=== PATIENT | female | born 1985 | race Caucasian/White ===

== ENCOUNTER 2018-02-17 16:55 | Observation (INO) | payer OTHER ==
--- NOTE | 2018-02-17 17:33 | ER Document Report ---
ED Medical Screen (RME) - General Chief Complaint: Abdominal Pain Stated Complaint: ABDOMINAL PAIN Time Seen by Provider: 02/17/18 17:25 Notes: 32-year-old female who is a a 4, she has had 3 miscarriages and one interstitial ectopic presents emergency department stating that she is 6 weeks , has been having severe lower abdominal cramping pain that is slightly off to the left of midline since this morning and has since developed a small amount of vaginal bleeding while waiting in the emergency department. TRAVEL OUTSIDE OF THE [place] IN LAST 30 DAYS: No - Related Data Allergies/Adverse Reactions: No Known Allergies Allergy (Verified 02/17/18 16:55) Past Medical History - General Information source: Patient - Social History Chew tobacco use (# tins/day): No Frequency of alcohol use: None Drug Abuse: None Renal/ Medical History: Denies: Hx Peritoneal Dialysis Review of Systems - Review of Systems Constitutional: No symptoms reported Genitourinary: See HPI Female Genitourinary: See HPI Physical Exam - Vital signs Vitals: Temp Pulse Resp BP Pulse Ox 97.9 F 83 18 114/73 100 02/17/18 17:03 02/17/18 17:03 02/17/18 17:03 02/17/18 17:03 02/17/18 17:03 Interpretation: Normal - General General appearance: Anxious - Tearful - HEENT Head: Normocephalic, Atraumatic - Respiratory Respiratory status: No respiratory distress - Skin Skin Color: Normal Course - Vital Signs Vital signs: Temp Pulse Resp BP Pulse Ox 97.9 F 83 18 114/73 100 02/17/18 17:03 02/17/18 17:03 02/17/18 17:03 02/17/18 17:03 02/17/18 17:03
--- NOTE | 2018-02-17 17:54 | ER Document Report ---
ED GI/ - General Chief Complaint: Abdominal Pain Stated Complaint: ABDOMINAL PAIN Time Seen by Provider: 02/17/18 17:25 Mode of Arrival: Wheelchair Information source: Patient Notes: 32-year-old female presents to ED for complaint of pelvic pain and vaginal spotting. She states she is 6 weeks and has been being monitored by her [facility] [facility] [facility] in [place]. She is here on vacation. She states on February 06 her hCG was 600 and on February 08 it was 1500. She states she has a severe pain on the left pelvic area and she developed spotting while in the emergency room. She states as a young adult she had cervical dysplasia and multiple leeps. TRAVEL OUTSIDE OF THE [place] IN LAST 30 DAYS: No - HPI Patient complains to provider of: Pelvic pain, , Vaginal bleeding Onset: This morning Timing/Duration: Gradual Quality of pain: Cramping Severity at maximum: Severe Severity in ED: Severe Pain Level: 5 Vaginal bleeding (Compared to normal period): Spotting Menstrual period history: Associated symptoms: Other - Left pelvic pain Exacerbated by: Movement Relieved by: Denies Similar symptoms previously: Yes Recently seen / treated by doctor: Yes - Related Data Allergies/Adverse Reactions: No Known Allergies Allergy (Verified 02/17/18 16:55) Past Medical History - General Information source: Patient - Social History Smoking Status: Never Smoker Cigarette use (# per day): No Chew tobacco use (# tins/day): No Smoking Education Provided: No Frequency of alcohol use: None Drug Abuse: None 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 denies: Arthritis, CAD, COPD, CVA , Hyperlipidemia, Thyroid Disfunction Patient has suicidal ideation: No Patient has homicidal ideation: No Pulmonary Medical History: Reports: None EENT Medical History: Reports: None Neurological Medical History: Reports: None Endocrine Medical History: Reports: None Renal/ Medical History: Reports: Hx Ectopic , Other - Cervical dysplasia Malignancy Medical History: Reports: None GI Medical History: Reports: None Musculoskeltal Medical History: Reports None Skin Medical History: Reports None Psychiatric Medical History: Reports: None Traumatic Medical History: Reports: None Infectious Medical History: Reports: None Past Surgical History: Reports: Hx Genitourinary Surgery - Multiple leeps, Hx Myringotomy - Immunizations Immunizations up to date: Yes Review of Systems - Review of Systems Constitutional: No symptoms reported EENT: No symptoms reported Cardiovascular: No symptoms reported Respiratory: No symptoms reported Gastrointestinal: No symptoms reported Genitourinary: No symptoms reported Female Genitourinary: , Vaginal bleeding, Other - Left pelvic pain Musculoskeletal: No symptoms reported Skin: No symptoms reported Hematologic/Lymphatic: No symptoms reported Neurological/Psychological: No symptoms reported -: Yes All other systems reviewed and negative Physical Exam - Vital signs Vitals: Temp Pulse Resp BP Pulse Ox 97.9 F 83 18 114/73 100 02/17/18 17:03 02/17/18 17:03 02/17/18 17:03 02/17/18 17:03 02/17/18 17:03 Interpretation: Normal - General General appearance: Appears well, Alert - HEENT Head: Normocephalic, Atraumatic Eyes: Normal Pupils: PERRL - Respiratory Respiratory status: No respiratory distress Chest status: Nontender Breath sounds: Normal Chest palpation: Normal - Cardiovascular Rhythm: Regular Heart sounds: Normal auscultation Murmur: No - Abdominal Inspection: Normal Distension: No distension Bowel sounds: Normal Tenderness: Tender - Left pelvic area Organomegaly: No organomegaly - Back Back: Normal, Nontender - Extremities General upper extremity: Normal inspection, Nontender, Normal color, Normal ROM , Normal temperature General lower extremity: Normal inspection, Nontender, Normal color, Normal ROM , Normal temperature, Normal weight bearing. No: Deb's sign - Neurological Neuro grossly intact: Yes Cognition: Normal Orientation: AAOx4 [place] Coma Scale Eye Opening: Spontaneous [place] Coma Scale Verbal: Oriented [place] Coma Scale Motor: Obeys Commands [place] Coma Scale Total: 15 Speech: Normal Motor strength normal: LUE, RUE, LLE, RLE Sensory: Normal - Psychological Associated symptoms: Normal affect, Normal mood - Skin Skin Temperature: Warm Skin Moisture: Dry Skin Color: Normal Course - Re-evaluation Re-evalutation: 02/17/18 20:[address]. Booker came and examined the patient. All labs and ultrasound were discussed with Dr. Booker. A copy of the results given to Dr. Walton as well as she visualized the images. She went in and examined the patient as well as a pelvic and had a discussion with the patient. Patient will be admitted observation to [facility] at this time while patient and decide if they want to do a laparoscopic surgery to rule out ectopic tonight or to have Dr. Booker monitor the patient. Patient will be treated with 1 mg of Dilaudid IV at this time as well as IV fluids. Patient was made n.p.o. - Vital Signs Vital signs: Temp Pulse Resp BP Pulse Ox 99.1 F 105 H 20 114/63 100 02/17/18 20:21 02/17/18 20:21 02/17/18 20:21 02/17/18 20:21 02/17/18 20:21 - Laboratory Result Diagrams: 02/17/18 17:47 02/17/18 17:47 Laboratory results interpreted by me: 02/17/18 17:47 ALT 54 H Beta HCG, Quant 1329.20 H - Diagnostic Test Radiology reviewed: Image reviewed, Reports reviewed Discharge - Discharge Clinical Impression: Pelvic pain affecting in first trimester, antepartum, Vaginal bleeding affecting early Disposition: ADMITTED OBSERVATION Admitting Provider: [facility] Admitted: Post
[2018-02-17 18:06] LABS: ABSOLUTE BASOPHILS # (AUTO) 0.1 10^3/uL (0.0-0.2); ABSOLUTE EOSINOPHILS # (AUTO) 0.1 10^3/uL (0.0-0.6); ABSOLUTE LYMPHOCYTES (AUTO) 2.1 10^3/uL (0.5-4.7); ABSOLUTE MONOCYTES (AUTO) 0.6 10^3/uL (0.1-1.4); ABSOLUTE NEUT (AUTO) 6.2 10^3/uL (1.7-8.2); BASOPHILS % (AUTO) 0.7 % (0-2); EOSINOPHILS % (AUTO) 0.7 % (0-6); HEMATOCRIT 39.9 % (36.0-47.0); HEMOGLOBIN 13.7 g/dL (12.0-15.5); LYMPHOCYTES % (AUTO) 23.5 % (13-45); MEAN CORPUSCULAR HEMOGLOBIN 29.4 pg (27.0-33.4); MEAN CORPUSCULAR HGB CONC 34.3 g/dL (32.0-36.0); MEAN CORPUSCULAR VOLUME 86 fl (80-97); MONOCYTES % (AUTO) 6.5 % (3-13); PLATELET COUNT 256 10^3/uL (150-450); RED BLOOD COUNT 4.65 10^6/uL (3.72-5.28); RED CELL DISTRIBUTION WIDTH 13.3 % (11.5-14.0); SEGMENTED NEUTROPHILS % (AUTO) 68.6 % (42-78); TOTAL CELLS COUNTED % (AUTO) 100 %; WHITE BLOOD COUNT 9.1 10^3/uL (4.0-10.5)
[2018-02-17 18:25] LABS: ALANINE AMINOTRANSFERASE 54 U/L (9-52); ALBUMIN 4.4 g/dL (3.5-5.0); ALKALINE PHOSPHATASE 40 U/L (38-126); ANION GAP 14 (5-19); ASPARTATE AMINO TRANSFERASE 29 U/L (14-36); BILIRUBIN,DIRECT 0.3 mg/dL (0.0-0.4); BILIRUBIN,TOTAL 0.3 mg/dL (0.2-1.3); BLOOD UREA NITROGEN 7 mg/dL (7-20); CALCIUM 9.6 mg/dL (8.4-10.2); CARBON DIOXIDE 27 mmol/L (22-30); CHLORIDE 103 mmol/L (98-107); GLUCOSE 107 mg/dL (75-110); POTASSIUM 3.9 mmol/L (3.6-5.0); SODIUM 143.9 mmol/L (137-145); TOTAL PROTEIN 7.1 g/dL (6.3-8.2)
--- NOTE | 2018-02-17 18:30 | RADIOLOGY REPORT (SQ) ---
EXAM DESCRIPTION: U/S OB TRANSVAG W/DOPPLER COMPLETED DATE/TIME: 02/17/2018 6:13 pm REASON FOR STUDY: 6 wks preg, vaginal bleeding, cramping COMPARISON: None. TECHNIQUE: Transvaginal static and realtime grayscale images acquired of the pelvis. Additional marco a cted spectral and color Doppler images recorded. All images stored on PACs. BHCG: Pending. LIMITATIONS: None. FINDINGS: UTERUS: No visualized intrauterine . RIGHT ADNEXA: Ovary not identified. LEFT ADNEXA: Ovary not identified. FREE FLUID: A small amount of free fluid is seen within the pelvic cul-de-sac. OTHER: No other significant finding. IMPRESSION: NO VISUALIZED INTRA- OR EXTRAUTERINE . bHCG LEVEL NOT AVAILABLE FOR CORRELATION WITH US FINDINGS. ECTOPIC CANNOT BE EXCLUDED. FOLLOW-UP ULTRASOUND AND SERIAL BHCG LEVELS STRONGLY RECOMMENDED TO ACCURATELY ASSESS STATU S. TECHNICAL DOCUMENTATION: JOB ID: [id number] [employer]- All Rights Reserved Reading location - IP/workstation name: [email or web address]
[2018-02-17 19:21] LABS: APPEARANCE,URINE CLEAR; BILIRUBIN,URINE NEGATIVE (NEGATIVE); COLOR,URINE STRAW; GLUCOSE, URINE NEGATIVE (NEGATIVE); KETONES,URINE NEGATIVE (NEGATIVE); LEUKOCYTE ESTERASE,URINE NEGATIVE (NEGATIVE); NITRITE,URINE NEGATIVE (NEGATIVE); PROTEIN,URINE NEGATIVE (NEGATIVE); URINE SPECIFIC GRAVITY 1.005; UROBILINOGEN,URINE NEGATIVE mg/dL (<2.0)
[2018-02-17] MEDS ORDERED: HYDROMORPHONE HCL INJ/PF 2 MG/ML AMPULE IV ONE (20:10)
[2018-02-17] MEDS ORDERED: NORMAL SALINE 1000 ML 1,000 ML IV ONE (20:10)
[2018-02-17] MEDS ORDERED: ONDANSETRON HCL INJ/PF 4 MG/2 ML SDV IV ONE (20:23)
[2018-02-17 20:51] LABS: CHLAM PCR NOT DETECTED (NOT DETECT); GON PCR NOT DETECTED (NOT DETECT)
--- NOTE | 2018-02-17 20:59 | PDOC H&P ---
History of Present Illness Admission Date/PCP: 02/17/18 20:13 Patient complains of: left sided abdominal pain, History of Present Illness: RADHA BEE is a 32 year old female @ approx 6 wks EGA. presents with pain, nausea and vomiting today. 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 Also states that she had another BHCG yesterday but did not get those results. Now having increasing pain and nausea with no vomiting. Indicates a history of previous ectopic several years back that was treated with MTX. Subsequently had a full term that delivered without difficulty. Indicates she had an HSG done last month that showed her right Fallopian tube was blocked but Left Fallopian tube was open. Today's BHCG is 1389. Sono is inconclusive with no evidence of intrauterine . Neither ovary is visible. 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 Past Medical History LMP: 6 weeks ago Gynecological Infection: No Gynecological History Note: indicates a history of LEEP procedures x 3. Obstetrical History: none - as in above HPI Medical History: None Cardiac Medical History: Reports: None Pulmonary Medical History: Reports: None EENT Medical History: Reports: None Neurological Medical History: Reports: None Endocrine Medical History: Reports: None Renal/ Medical History: Reports: Other - Cervical dysplasia Malignancy Medical History: Reports: None GI Medical History: Reports: None Musculoskeltal Medical History: Reports: None Skin Medical History: Reports: None Psychiatric Medical History: Reports: None Traumatic Medical History: Reports: None Infectious Medical History: Reports: None Social History Lives with: Family Smoking Status: Never Smoker Family History Family History: None, DM, Hypertension, Malignancy. denies: Arthritis, CAD, COPD, CVA, Hyperlipidemia, Thyroid Disfunction Parental Family History Reviewed: Yes Children Family History Reviewed: Yes Sibling(s) Family History Reviewed.: Yes Medication/Allergy Allergies/Adverse Reactions: No Known Allergies Allergy (Verified 02/17/18 16:55) Physical Exam - Physical Exam Vital Signs: Temp Pulse Resp BP Pulse Ox 99.1 F 105 H 20 114/63 100 02/17/18 20:21 02/17/18 20:21 02/17/18 20:21 02/17/18 20:21 02/17/18 20:21 General appearance: PRESENT: cooperative, severe distress, thin, well-developed Head exam: PRESENT: atraumatic Pulses: PRESENT: normal radial pulses Vascular exam: PRESENT: normal capillary refill GI/Abdominal exam: PRESENT: tenderness - mostly on left Neurological exam: PRESENT: alert, altered, awake - Gynecological Exam Labia: normal Urethra: normal Introitus: normal Perineum: normal Vagina: normal, discharge - brown old bloody discharge. No BRB Cervix: normal Cervix: normal Uterus: normal Adhexa: tender - tender more on left. No masses palpable Result Impressions: Transvaginal US 02/17/18 17:31 IMPRESSION: NO VISUALIZED INTRA- OR EXTRAUTERINE . bHCG LEVEL NOT AVAILABLE FOR CORRELATION WITH US FINDINGS. ECTOPIC CANNOT BE EXCLUDED. FOLLOW-UP ULTRASOUND AND SERIAL BHCG LEVELS STRONGLY RECOMMENDED TO ACCURATELY ASSESS STATUS. Assessment & Plan - Time Time Spent: 30 to 50 Minutes - Inpatient Certification Based on my medical assessment, after consideration of the patient's comorbidities, presenting symptoms, or acuity I expect that the services needed warrant INPATIENT care.: Yes I certify that my determination is in accordance with my understanding of Medicare's requirements for reasonable and necessary INPATIENT services [42 CFR 412.3e].: Yes Medical Necessity: Need Close Monitoring Due to Risk of Patient Decompensation, Need For IV Fluids, Need for Pain Control, Risk of Complication if Not Cared For in Hospital - Plan Summary Plan Summary: d/w patient and her that I cannot conclusively rule out an ectopic or rule it in. I have offerred observation in the hospital versus immediate laparoscopy and the possibility of not having finding of ectopic and possible loss of fallopian tube. She and have discussed and will stay for observation. I counseled that at any signs of deompensation we will go for immediate diagnositc surgery with laparasocpy or laparotomy. Will follow serial blood counts.
[2018-02-17] MEDS ORDERED: DEXTROSE 40% GEL 15 GM TUBE PO PRN ×2 (21:00)
[2018-02-17] MEDS ORDERED: GLUCAGON,HUMAN RECOMB 1 MG INJ SUBCUT PRN (21:00)
[2018-02-17] MEDS ORDERED: DEXTROSE 50%-WATER 25 GM/50 ML DISP.SYRIN IV PRN ×2 (21:00)
[2018-02-17] MEDS ORDERED: PROMETHAZINE HCL INJ 25 MG/1 ML VIAL IV PRN (21:01)
[2018-02-17 21:26] LABS: HEMATOCRIT 34.9 % (36.0-47.0); HEMOGLOBIN 12.1 g/dL (12.0-15.5); MEAN CORPUSCULAR HEMOGLOBIN 29.6 pg (27.0-33.4); MEAN CORPUSCULAR HGB CONC 34.8 g/dL (32.0-36.0); MEAN CORPUSCULAR VOLUME 85 fl (80-97); PLATELET COUNT 229 10^3/uL (150-450); RED BLOOD COUNT 4.11 10^6/uL (3.72-5.28); RED CELL DISTRIBUTION WIDTH 13.1 % (11.5-14.0); WHITE BLOOD COUNT 9.7 10^3/uL (4.0-10.5)
[2018-02-17] MEDS: RINGERS SOLUTION,LACTATED 1,000 ML IV PRN (23:06)
[2018-02-18] MEDS: HYDROMORPHONE HCL INJ/PF 2 MG/ML AMPULE IV PRN ×2 (00:48→07:21)
[2018-02-18 02:26] LABS: HEMATOCRIT 32.7 % (36.0-47.0); HEMOGLOBIN 11.4 g/dL (12.0-15.5); MEAN CORPUSCULAR HEMOGLOBIN 29.7 pg (27.0-33.4); MEAN CORPUSCULAR HGB CONC 34.9 g/dL (32.0-36.0); MEAN CORPUSCULAR VOLUME 85 fl (80-97); PLATELET COUNT 200 10^3/uL (150-450); RED BLOOD COUNT 3.85 10^6/uL (3.72-5.28); RED CELL DISTRIBUTION WIDTH 12.8 % (11.5-14.0)
[2018-02-18] MEDS: RINGERS SOLUTION,LACTATED 1,000 ML IV PRN ×2 (07:22→15:56)
--- NOTE | 2018-02-18 08:27 | PDOC PROGRESS REPORT ---
Subjective Progress Note for:: 02/18/18 Subjective:: pt feels better but has itching from meds. Reason For Visit: PELVIC PAIN AFFECTING IN TRIM Physical Exam - Physical Exam Vital Signs: Temp Pulse Resp BP Pulse Ox 98.5 F 69 18 90/54 L 100 02/18/18 07:25 02/18/18 07:25 02/18/18 07:25 02/18/18 07:25 02/18/18 07:25 Intake & Output 02/17/18 02/18/18 02/19/18 06:59 06:59 06:59 Weight 77.7 kg General appearance: PRESENT: no acute distress GI/Abdominal exam: PRESENT: normal bowel sounds, soft - Gynecological Exam Labia: normal Urethra: normal Introitus: normal Perineum: normal Vagina: normal, discharge - brown old bloody discharge. No BRB Cervix: normal Cervix: normal Uterus: normal Adhexa: tender - tender more on left. No masses palpable Result Laboratory Results: 02/18/18 02:10 02/17/18 02/18/18 21:16 02:10 WBC 9.7 8.0 RBC 4.11 3.85 Hgb 12.1 11.4 L Hct 34.9 L 32.7 L MCV 85 85 MCH 29.6 29.7 MCHC 34.8 34.9 RDW 13.1 12.8 Plt Count 229 200 Impressions: Transvaginal US 02/17/18 17:31 IMPRESSION: NO VISUALIZED INTRA- OR EXTRAUTERINE . bHCG LEVEL NOT AVAILABLE FOR CORRELATION WITH US FINDINGS. ECTOPIC CANNOT BE EXCLUDED. FOLLOW-UP ULTRASOUND AND SERIAL BHCG LEVELS STRONGLY RECOMMENDED TO ACCURATELY ASSESS STATUS. Assessment & Plan - Diagnosis (1) Pelvic pain affecting in first trimester, antepartum Is this a current diagnosis for this admission?: Yes (2) Vaginal bleeding affecting early Is this a current diagnosis for this admission?: Yes - Plan Summary Plan Summary: qHCG at 5:45 today plan depending on results
[2018-02-18] MEDS ORDERED: DIPHENHYDRAMINE HCL 50 MG/ML VIAL IV PRN (08:47)
[2018-02-18] MEDS ORDERED: DIPHENHYDRAMINE HCL 50 MG/ML VIAL ONE (09:02)
[2018-02-18] MEDS ORDERED: OXYCODONE-ACETAMINOPHEN 5-325 MG TABLET PO PRN (13:19)
[2018-02-18 14:11] VITALS: BP 102/58
--- NOTE | 2018-02-18 17:30 | PDOC PROGRESS REPORT ---
Subjective Progress Note for:: 02/18/18 Subjective:: pt without complaints Reason For Visit: PELVIC PAIN AFFECTING IN TRIM Physical Exam - Physical Exam Vital Signs: Temp Pulse Resp BP Pulse Ox 98.9 F 62 18 102/58 L 97 02/18/18 12:02 02/18/18 13:58 02/18/18 13:58 02/18/18 13:58 02/18/18 12:02 Intake & Output 02/17/18 02/18/18 02/19/18 06:59 06:59 06:59 Weight 77.7 kg General appearance: PRESENT: no acute distress GI/Abdominal exam: PRESENT: soft - Gynecological Exam Labia: normal Urethra: normal Introitus: normal Perineum: normal Vagina: normal, discharge - brown old bloody discharge. No BRB Cervix: normal Cervix: normal Uterus: normal Adhexa: tender - tender more on left. No masses palpable Result Laboratory Results: 02/18/18 02:10 02/17/18 02/18/18 21:16 02:10 WBC 9.7 8.0 RBC 4.11 3.85 Hgb 12.1 11.4 L Hct 34.9 L 32.7 L MCV 85 85 MCH 29.6 29.7 MCHC 34.8 34.9 RDW 13.1 12.8 Plt Count 229 200 Impressions: Transvaginal US 02/17/18 17:31 IMPRESSION: NO VISUALIZED INTRA- OR EXTRAUTERINE . bHCG LEVEL NOT AVAILABLE FOR CORRELATION WITH US FINDINGS. ECTOPIC CANNOT BE EXCLUDED. FOLLOW-UP ULTRASOUND AND SERIAL BHCG LEVELS STRONGLY RECOMMENDED TO ACCURATELY ASSESS STATUS. Assessment & Plan - Diagnosis (1) Pelvic pain affecting in first trimester, antepartum Is this a current diagnosis for this admission?: Yes (2) Vaginal bleeding affecting early Is this a current diagnosis for this admission?: Yes (3) Threatened Is this a current diagnosis for this admission?: Yes - Plan Summary Plan Summary: decreasing qHCG probable spotaneous AB in progress
--- NOTE | 2018-02-18 17:35 | PDOC DISCHARGE SUMMARY ---
General - Admit/Disc Date/PCP Admission Date/Primary Care Provider: 02/17/18 20:13 Discharge Date: 02/18/18 - Discharge Diagnosis (1) Pelvic pain affecting in first trimester, antepartum Is this a current diagnosis for this admission?: Yes (2) Vaginal bleeding affecting early Is this a current diagnosis for this admission?: Yes (3) Threatened Is this a current diagnosis for this admission?: Yes - Additional Information Discharge Diet: As Tolerated Discharge Activity: Activity As Tolerated, Balance Activity w/Rest, No tub bath Home Medications: Fexofenadine HCl [Jojo] 180 mg PO DAILY 02/18/18 Vit/Dha [ Multi + Dha Capsule] 1 cap PO DAILY 02/18/18 History of Present Illness History of Present Illness: RADHA BEE is a 32 year old female pt admitted with pos HCG and possible ectopic. value has haved in 24 hours so feel this is spontaneous ab in progress Physical Exam - Physical Exam Vital Signs: Temp Pulse Resp BP Pulse Ox 98.9 F 62 18 102/58 L 97 02/18/18 17:27 02/18/18 17:27 02/18/18 17:27 02/18/18 17:27 02/18/18 17:27 Intake & Output 02/17/18 02/18/18 02/19/18 06:59 06:59 06:59 Weight 77.7 kg General appearance: PRESENT: no acute distress Respiratory exam: PRESENT: clear to auscultation lisa GI/Abdominal exam: PRESENT: soft - Gynecological Exam Labia: normal Urethra: normal Introitus: normal Perineum: normal Vagina: normal, discharge - brown old bloody discharge. No BRB Cervix: normal Cervix: normal Uterus: normal Adhexa: tender - tender more on left. No masses palpable Result Laboratory Results: 02/18/18 02:10 02/17/18 02/18/18 21:16 02:10 WBC 9.7 8.0 RBC 4.11 3.85 Hgb 12.1 11.4 L Hct 34.9 L 32.7 L MCV 85 85 MCH 29.6 29.7 MCHC 34.8 34.9 RDW 13.1 12.8 Plt Count 229 200 Impressions: Transvaginal US 02/17/18 17:31 IMPRESSION: NO VISUALIZED INTRA- OR EXTRAUTERINE . bHCG LEVEL NOT AVAILABLE FOR CORRELATION WITH US FINDINGS. ECTOPIC CANNOT BE EXCLUDED. FOLLOW-UP ULTRASOUND AND SERIAL BHCG LEVELS STRONGLY RECOMMENDED TO ACCURATELY ASSESS STATUS. Plan Discharge Plan: d/c pt to f/u with her ob at home
== END 2018-02-18 18:00 | disposition home or self-care (01) ==
LOC: ER 16:55 → EH 20:13 → 2N 21:23
PROVIDERS: ADMIT Obstetrics & Gynecology; ATTEND Obstetrics & Gynecology
DX: O26.891 Other specified pregnancy related conditions, first trimester (principal); R10.2 Pelvic and perineal pain; O20.0 Threatened abortion; O9A.211 Injury, poisoning and certain other consequences of external causes complicating pregnancy, first trimester; L29.9 Pruritus, unspecified; T50.905A Adverse effect of unspecified drugs, medicaments and biological substances, initial encounter; Y92.239 Unspecified place in hospital as the place of occurrence of the external cause; Z98.890 Other specified postprocedural states; Z87.410 Personal history of cervical dysplasia; Z87.59 Personal history of other complications of pregnancy, childbirth and the puerperium
CPT/HCPCS: 99285; 96361; 96374; 96375; 86900; 86901; 36415 ×2; 84702 ×2; 85025; 85027 ×2; 80053; 81001; 87491; 87591; 76817; 93976; G0378 ×3; J1200; J1170 ×2; J2405; J7030; J7120 ×2

== ENCOUNTER → 2020-04-20 | Outpatient (CLI) | payer OTHER | LOC: OD 12:25 | PROVIDERS: ATTEND Radiology Radiation Oncology | DX: C50.411 Malignant neoplasm of upper-outer quadrant of right female breast (principal) | CPT/HCPCS: 36415; 84703 ==